=== PATIENT | male | born 1975 | race Caucasian/White ===

== ENCOUNTER 2016-11-09 08:29 | Emergency (ER) | payer OTHER ==
[2016-11-09 08:58] VITALS: BP 144/92
--- NOTE | 2016-11-09 09:35 | UC ---
Respiratory Complaint HPI - HPI Summary HPI Summary: The patient comes in today for: 1. Cough: Onset: 2 weeks. Palliative/provocative: Laughing or exertion makes his cough worse. Quality: Wheezy Region: Lungs. Severity: no pain at this time. Time: Cough will come and go. Associated symptoms: Inhaler use: None. Previous treatment: HE saw his PCP last week and gave him Z-pack. Dx: bronchitis or pneumonia: He finished the Z-pack and the prednisone. These helped a little bit. Fevers: None recently. Chest pain: Npne. Dyspnea: negative. Rhinitis: Clear. Cough production: Dry. Wheezing: Present. Cough: it has kept him from sleeping. * - History of Current Complaint Chief Complaint: UCRespiratory Stated Complaint: CHEST CONGESTION Time Seen by Provider: 11/09/16 09:29 Hx Obtained From: Patient - Allergies/Home Medications Allergies/Adverse Reactions: Allergies Allergy/AdvReac Type Severity Reaction Status Date / Time No Known Allergies Allergy Verified 11/09/16 08:58 Home Medications: Home Medications Zpak 1 dose PO DAILY 11/09/16 [History Confirmed 11/09/16] PMH/Surg Hx/FS Hx/Imm Hx Previously Healthy: Yes Endocrine History Of: Denies: Diabetes, Thyroid Disease, Hyperthyroidism, Hypothyroidism, Dyslipidemia Cardiovascular History Of: Denies: Cardiac Disorders, Hypertension, Pacemaker/ICD, Myocardial Infarction , Congestive Heart Failure, Atrial Fibrillation, Deep Vein Thrombosis, Bleeding Disorders Respiratory History Of: Denies: COPD, Asthma, Bronchitis, Pneumonia, Pulmonary Embolism GI/ History Of: Reports: Gastroesophageal Reflux Denies: Ulcer, Gastrointestinal Bleed, Gall Bladder Disease, Kidney Stones, Diverticulitis, Renal Disease, Urosepsis Neurological History Of: Denies: TIA, CVA, Dementia, Seizures, Migraine Psychological History Of: Denies: Anxiety, Depression, Bipolar Disorder, Schizophrenia, Post Traumatic Stress Disorder Cancer History Of: Denies: Lung Cancer, Colorectal Cancer, Breast Cancer, Prostate Cancer, Cervical Cancer Other History Of: Negative For: HIV, Hepatitis B, Hepatitis C, Anticoagulant Therapy - Surgical History Surgical History: Yes Surgery Procedure, Year, and Place: 2009 - Family History Known Family History: Negative: Cardiac Disease, Hypertension Family History: NON CONTRIBUTORY - Social History Occupation: Employed Full-time Alcohol Use: None Substance Use Type: None Smoking Status (MU): Never Smoked Tobacco - Immunization History Most Recent Tetanus Shot: uncertain Review of Systems Constitutional: Negative Skin: Negative Eyes: Negative ENT: Nasal Discharge Respiratory: Cough Cardiovascular: Negative Gastrointestinal: Negative Genitourinary: Negative All Other Systems Reviewed And Are Negative: Yes Physical Exam Triage Information Reviewed: Yes Appearance: Well-Appearing, No Pain Distress, Well-Nourished Vital Signs: Initial Vital Signs Temp 98.3 F 11/09/16 08:52 Pulse 88 11/09/16 08:52 Resp 18 11/09/16 08:52 BP 144/92 11/09/16 08:52 Pulse Ox 96 11/09/16 08:52 Vital Signs Reviewed: Yes Eyes: Positive: Conjunctiva Clear. Negative: Discharge ENT: Positive: Hearing grossly normal. Negative: Pharyngeal erythema, Nasal congestion, Nasal drainage, TM bulging, TM dull, TM red, Tonsillar swelling, Tonsillar exudate Dental: Negative: Gross Decay/Caries @, Dental Fracture @ Neck: Positive: Supple, Nontender, No Lymphadenopathy. Negative: Nuchal Rigidity Respiratory: Positive: Lungs clear, No respiratory distress, No accessory muscle use. Negative: Crackles, Wheezing Cardiovascular: Positive: RRR, No Murmur Abdomen Description: Positive: Nontender, No Organomegaly, Soft. Negative: Distended, Guarding Musculoskeletal: Positive: Strength Intact, ROM Intact, No Edema Neurological: Positive: Alert, Muscle Tone Normal Psychological: Positive: Age Appropriate Behavior, Consolable Skin: Negative: rashes, breakdown UC Diagnostic Evaluation - Laboratory O2 Sat by Pulse Oximetry: 96 Respiratory Course/Dx - Differential Dx/Diagnosis Differential Diagnosis/HQI/PQRI: Asthma, Bronchitis, Sinusitis Provider Diagnoses: cough, post infectious, hyperactive airway. Discharge - Discharge Plan Condition: Stable Disposition: HOME Prescriptions: Albuterol/Ipratropium RESP(NF) [Combivent Respimat (NF)] 1 aer IN QID #1 aer Budesonide Flexhaler 180 (NF) [Pulmicort Flexhaler 180 mcg/act (NF)] 2 inh IN BID #1 mdi Patient Education Materials: Chronic Cough (ED) Referrals: FRANKLIN Khanna [Primary Care Provider] - 1 Week (Please see your primary care provider in about one to two weeks to see how well you are doing. If you get worse, please be seen sooner.)
== END 2016-11-09 10:00 | disposition home or self-care (01) ==
LOC: UCCORT 08:29
DX: R05 Cough (principal); K21.9 Gastro-esophageal reflux disease without esophagitis; J45.909 Unspecified asthma, uncomplicated
CPT/HCPCS: 99212; G0463

== ENCOUNTER 2017-12-20 16:38 | Emergency (ER) | payer SELFPAY ==
--- NOTE | 2017-12-20 16:50 | UC ---
Upper Extremity HPI - HPI Summary HPI Summary: 42 y/o male presents to the urgent care c/o left elbow pain s/p repetitive heavy lifting at work for the past 2 months. 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 He was transfer to another position for a while and his pain resolved. However for the past week he had to return to do heavy lifting and he heard a pop sound over his LF elbow while lifting 2 totes yesterday. Pin is 6/ 10 w/ movement w/ some numbness around the area. Pt has not taking anything to alleviate symptoms. He has only applied ice. Pt denies fever, SOB, chest pain, abdominal pain, N/V/D - History of Current Complaint Hx Obtained From: Patient Onset/Duration: Gradual Onset, Lasting Weeks - 2 months, Still Present, Worse Since - yesterday Severity Initially: Mild Severity Currently: Moderate Pain Intensity: 6 Pain Scale Used: 0-10 Numeric Location Of Pain: Is Discrete @ - left elbow Character: Sharp Aggravating Factor(s): Movement, Lifting, Flexion Alleviating Factor(s): Ice Associated Signs And Symptoms: Positive: Swelling - mild, Numbness/Tingling - mild. Negative: Redness, Bruising, Fever, Weakness Related History: Dominant Hand Right - Risk Factors Non-Orthopedic Risk Factor: Negative DVT Risk Factors: Negative Septic Arthritis Risk Factor: Negative <Aga Yoon - Last Filed: 12/25/17 23:47> <Breanna Boggs - Last Filed: 12/28/17 09:12> - History of Current Complaint Stated Complaint: WC- LEFT ELBOW INJURY Time Seen by Provider: 12/20/17 16:49 - Allergies/Home Medications Allergies/Adverse Reactions: Allergies Allergy/AdvReac Type Severity Reaction Status Date / Time No Known Allergies Allergy Verified 11/09/16 08:58 PMH/Surg Hx/FS Hx/Imm Hx Previously Healthy: Yes - Pt denies PMHX Other History Of: Negative For: HIV, Hepatitis B, Hepatitis C, Anticoagulant Therapy - Surgical History Surgical History: Yes Surgery Procedure, Year, and Place: 2009 - Family History Known Family History: Negative: Cardiac Disease, Hypertension Family History: NON CONTRIBUTORY - Social History Occupation: Employed Full-time Lives: With Family Alcohol Use: None Substance Use Type: None Smoking Status (MU): Never Smoked Tobacco - Immunization History Most Recent Tetanus Shot: uncertain <Aga Yoon - Last Filed: 12/25/17 23:47> Review of Systems Constitutional: Negative Skin: Negative Eyes: Negative ENT: Negative Respiratory: Negative Cardiovascular: Negative Gastrointestinal: Negative Genitourinary: Negative Motor: Negative Neurovascular: Negative Musculoskeletal: Decreased ROM - left elbow, Other: - left elbow pain s/p repetitive heavy lifting Neurological: Negative Psychological: Negative Is Patient Immunocompromised?: No All Other Systems Reviewed And Are Negative: Yes <MejiaGeovannyRichardsonAga - Last Filed: 12/25/17 23:47> Physical Exam - Summary Physical Exam Summary: Vital Signs Reviewed: Yes General: well developed, well nourished male sitting in the examining table w/o any apparent distress. Eyes: Positive: Conjunctiva Clear - PERRLA, EOMI, ENT: Positive: Normal ENT inspection, Hearing grossly normal, Pharynx normal, TMs normal - B/L, Uvula midline Neck: Positive: Supple, Nontender, No Lymphadenopathy Respiratory: Positive: Chest non-tender, Lungs clear, Normal breath sounds, No respiratory distress, No accessory muscle use Cardiovascular: Positive: RRR, No Murmur, Pulses Normal, Brisk Capillary Refill Abdomen Description: Positive: Nontender, No Organomegaly, Soft. Negative: CVA Tenderness (R), CVA Tenderness (L) Bowel Sounds: Positive: Present Musculoskeletal: Positive: Strength Intact, LF Elbow: The L elbow is w/o deformity when compared to the R elbow. No obvious surface trauma, ecchymosis, Positive mild soft tissue swelling on lateral side ob elbow. Point tenderness to palpation of the lateral epicondyle, No tenderness over olecranon or radial head. No epicondylar or axillary lymphadenopathy. Decreased ROM due to pain, specailly on flexion. Muscle strength WNL, Intact motor and sensation of ulnar, median, and radial nerves. Neurological: Positive: Alert, Muscle Tone Normal Psychological Exam: Normal Skin Exam: Normal Triage Information Reviewed: Yes <MejiaStanleyRichardsonAga - Last Filed: 12/25/17 23:47> Vital Signs: Initial Vital Signs Temp 98.0 F 12/20/17 16:50 Pulse 82 05/21/18 16:50 Resp 14 12/20/17 16:50 BP 137/94 12/20/17 16:50 Pulse Ox 98 12/20/17 16:50 <Breanna Boggs - Last Filed: 12/28/17 09:12> Upper Extremity Course/Dx - Course Course Of Treatment: 42 y/o male presents to the urgent care c/o left elbow pain s/p repetitive heavy lifting at work for the past 2 months. 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 He was transfer to another position for a while and his pain resolved. However for the past week he had to return to do heavy lifting and he heard a pop sound over his LF elbow while lifting 2 totes yesterday. Pin is 6/10 w/ movement w/ some numbness around the area. Pt has not taking anything to alleviate symptoms. He has only applied ice. Pt denies fever, SOB, chest pain, abdominal pain, N/V/D. Hx obtained. Left elbow X-ray ordered, Impression:Negative for fat pad displacement to indicate joint effusion , negative for fracture, positive dorsal soft tissue swelling observed by radiologist. X-ray results discussed with Pt. Left elbow immobilized with shoulder sling and Pt Rx Naproxen PO alleviate pain and swelling. PT strongly advised to f/u with Orthopedic if not improvement of symptoms for further evaluation and treatment. Also advised RICE, and D/C instructions explained. Pt understood and agreed with plan of care. Pt left the clinic ambulating. - Differential Dx/Diagnosis Differential Diagnosis/HQI/PQRI: Arthritis, Contusion, Fracture (Closed), Strain , Sprain, Other - tendonitis Provider Diagnoses: 1- Acute left elbow pain s/p injury. 2- left elbow tendonitis. 3- Elevated BP w/o Hx of HTN <Aga Yoon - Last Filed: 12/25/17 23:47> Discharge - Sign-Out/Discharge Documenting (check all that apply): Discharge/Admit/Transfer - D/C home - Billing Disposition and Condition Condition: STABLE Disposition: HOME <Aga Yoon - Last Filed: 12/25/17 23:47> - Billing Disposition and Condition Condition: STABLE Disposition: HOME <Breanna Boggs - Last Filed: 12/28/17 09:12> - Discharge Plan Condition: Stable Disposition: HOME Prescriptions: Naproxen TAB* [Naprosyn 250 mg TAB*] 250 mg PO Q8H PRN #30 tab PRN Reason: Pain Patient Education Materials: Tennis Elbow (ED), Low-Sodium Diet (ED) Forms: *Work Release Referrals: Montana Martins MD [Medical Doctor] - 1 Week FRANKLIN Khanna [Primary Care Provider] - 1 Week Additional Instructions: 1-Please take medications as directed to alleviate pain and swelling. 2-Please apply ice, keep your shoulder immobilized with the shoulder sling for 3 -4 days and then resume movement slowly 3- Please f/u with Orthopedic Dr Martins or your PCP in 1 week is not improvement of symptoms for further evaluation and treatment. 4- Your BP is elevated today. please decrease salt in your diet, monitor BP and if it continues to be elevated please f/u with your PCP for further management Attestation Statement User Type: Provider - I was available for consult. This patient was seen by the TIN. The patient was not presented to, seen by, or examined by me. -Radhames <Breanna Boggs - Last Filed: 12/28/17 09:12>
[2017-12-20 16:56] VITALS: BP 137/94
[2017-12-20] MEDS ORDERED: Ibuprofen TAB* 400 MG PO ONE (17:07)
--- NOTE | 2017-12-20 17:56 | RAD ---
INDICATION: LEFT elbow pain following heavy lifting. Repetitive motion injury. Lateral and posterior pain with palpation. Decreased range of motion. COMPARISON: No relevant prior exams available on the [facility] for comparison. TECHNIQUE: AP, lateral, and oblique views LEFT elbow. REPORT AND IMPRESSION: Normal articular alignment and preserved joint spaces. Negative for fat pad displacement to indicate joint effusion. Negative for fracture. Very mild dorsal soft tissue swelling.
== END 2017-12-20 18:24 | disposition home or self-care (01) ==
LOC: UCCORT 16:38
DX: M25.522 Pain in left elbow (principal); M77.9 Enthesopathy, unspecified; X50.3XXA Overexertion from repetitive movements, initial encounter; Y93.89 Activity, other specified; Y92.9 Unspecified place or not applicable; Y99.0 Civilian activity done for income or pay
CPT/HCPCS: 99213; A9270-GY; G0463

== ENCOUNTER 2019-04-15 10:01 | Emergency (ER) | payer OTHER ==
[2019-04-15 10:27] VITALS: BP 129/92
--- NOTE | 2019-04-15 10:56 | UC ---
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 States he was "laughing really hard.. felt chest tighten and then I passed out". States he was sitting up in chair and fell backwards on to floor; was witnessed by others and was " out for about 20 seconds". Denies any chest pain or SOB right now. No other syncopal episode since then. " -cp was severe over mid chest, then he said he couldnt breath -denies known CAD/TN. no Fhx CAD, denies murmurs, denies FHx sudden -no known arryhthmias or Fhx arrythmias -never had syncope oterwise -no knowng personal or Fhx congenital heart hx -feels fine today - not lightheaded or dizzy. -his friends wanted to call 911 last night but her refused to let them -reports he was LOC for ~ 20 secs. denies foaming at mouth. no loss of continence -states that he recovered quickly, recollected all of thomas events -states that he did a "motor check" on himself to assure he didnt have a CVA. -thinks he has high lipids and AARON but not checked. no known DM or HTN - History of Current Complaint Chief Complaint: UCGeneralIllness Stated Complaint: LIGHT HEADED Time Seen by Provider: 04/15/19 10:36 Pain Intensity: 0 - Allergy/Home Medications Allergies/Adverse Reactions: Allergies Allergy/AdvReac Type Severity Reaction Status Date / Time No Known Allergies Allergy Verified 04/15/19 10:14 Home Medications: Home Medications NK [No Home Medications Reported] 04/15/19 [History Confirmed 04/15/19] PMH/Surg Hx/FS Hx/Imm Hx Previously Healthy: Yes Other History Of: Negative For: HIV, Hepatitis B, Hepatitis C, Anticoagulant Therapy - Surgical History Surgical History: Yes Surgery Procedure, Year, and Place: L 2009 - Family History Known Family History: Negative: Cardiac Disease, Hypertension Family History: NON CONTRIBUTORY - Social History Alcohol Use: Occasionally Alcohol Amount: "couple times a month" Substance Use Type: Marijuana Substance Use Comment - Amount & Last Used: occasionally; 04/15/19 Smoking Status (MU): Never Smoked Tobacco - Immunization History Most Recent Tetanus Shot: uncertain Review of Systems All Other Systems Reviewed And Are Negative: Yes Constitutional: Positive: Negative. Negative: Fever, Fatigue Skin: Positive: Negative. Negative: Rash Eyes: Positive: Negative ENT: Positive: Negative Respiratory: Positive: Shortness Of Breath - resolved Cardiovascular: Positive: Chest Pain - resolved Gastrointestinal: Positive: Negative. Negative: Abdominal Pain, Vomiting, Diarrhea, Nausea Genitourinary: Positive: Negative. Negative: Dysuria Motor: Positive: Negative Neurovascular: Positive: Negative Musculoskeletal: Positive: Negative Neurological: Positive: Other - see above. no sx today Psychological: Positive: Negative Is Patient Immunocompromised?: No Physical Exam Triage Information Reviewed: Yes Appearance: Well-Appearing, No Pain Distress, Well-Nourished Vital Signs: Initial Vital Signs Temp 97.5 F 04/15/19 10:15 Pulse 78 04/15/19 10:15 Resp 16 04/15/19 10:15 BP 129/92 04/15/19 10:15 Pulse Ox 95 04/15/19 10:15 Eye Exam: Normal ENT Exam: Normal ENT: Positive: Pharynx normal, TMs normal, Other - Class 3 airway, neck > 17 cm Neck exam: Normal Neck: Positive: Supple, Nontender, No Lymphadenopathy Respiratory Exam: Normal Respiratory: Positive: Lungs clear, Normal breath sounds, No respiratory distress, No accessory muscle use. Negative: Crackles, Rhonchi, Stridor, Wheezing Cardiovascular Exam: Normal - however heart sounds are somewhat distant ( perhaps d/t body habitus) and cannot eval for murmur. regular rate and ryhthem. Cardiovascular: Positive: Other: - chest wall i snon tender. Abdominal Exam: Normal Abdomen Description: Positive: Nontender, Soft, Other: - exam limited d/t habitus. Negative: CVA Tenderness (R), CVA Tenderness (L), Distended, Guarding Bowel Sounds: Positive: Present Musculoskeletal Exam: Normal Neurological Exam: Normal Psychological Exam: Normal Skin Exam: Normal - Assessment/Plan Course Of Treatment: -Reecommend to go to ER by ambulance but does not want o go by ambulance. he is ASX today. he does agree to go to the ER for further work up including labs, monitoring and observation w/ potential further testing. discussed that eh ahs changes on his EKG that that shows Q wave in II,III, AVF that could mean he has had a prior TN. he is unaware of any prior MIs. no acute ST/T changes. nml axis. / no prev to compare, understands this is a screening test. could dimitri potentially had heart damage last night w/ the episode and possible TN and agrees to further eval at [facility]. -given 324mgs ASA to chew -he does not want ambulance but will drive himself. he has no sx at this time. -I spoke with Dixie Montoyaner in ER at 10:51 who agrees to accept pt. she is aware that I am unable to get good ausculation of his heart possibly d/t his habitis and cannot eval for murmur. aware of Q in II, III and AVF on EKG concerns. -recommend to pt to be certain to f/u with his PCP this week even if he goes to ER for further testing and potentially stress test/echo.carotids depenidng on what is done to the ER -will need f/u on BP as well as it is slightly elevated today. - Differential Diagnoses - Chest Pain Differential Diagnosis/HQI/PQRI: Acute TN, ACS, Angina, Aortic Aneurysm, CHF, Other: - syncope - Clinical Impression Provider Diagnosis: Syncope and collapse, Chest pain, Shortness of breath Discharge ED - Sign-Out/Discharge Documenting (check all that apply): Patient Departure All imaging exams completed and their final reports reviewed: No Studies - Discharge Plan Condition: Good Disposition: TRANS HIGHER LVL OF CARE FAC Referrals: Drew Brown MD [Primary Care Provider] - Additional Instructions: Please go directly to the [facility]. Do not stop anywhere on your way there. You have been given ASA 325mgs to chew. - Billing Disposition and Condition Condition: GOOD Disposition: Trans Higher Lvl of Care Fac
[2019-04-15] MEDS ORDERED: Aspirin 81 mg CHEW TAB* 81 MG TAB.CHEW PO ONE (10:58)
== END 2019-04-15 11:04 | disposition short-term general hospital (02) ==
LOC: UCCORT 10:01
DX: R55 Syncope and collapse (principal); R07.89 Other chest pain; R06.02 Shortness of breath
CPT/HCPCS: 93005; 99212; A9270-GY; G0463